=== PATIENT | female | born 1940 ===

== ENCOUNTER → 2016-09-20 | Outpatient (REF) | payer MEDICARE ==
[2016-09-20 17:34] LABS: INR 2.26
== END ==
LOC: M LABDRAWC 16:25
PROVIDERS: ATTEND Student in an Organized Health Care Education/Training Program
DX: D68.52 Prothrombin gene mutation (principal)

== ENCOUNTER → 2016-10-11 | Outpatient (REF) | payer MEDICARE ==
[2016-10-11 19:59] LABS: INR 3.07
== END ==
LOC: M LABDRAWC 17:16
PROVIDERS: ATTEND Student in an Organized Health Care Education/Training Program
DX: Z86.718 Personal history of other venous thrombosis and embolism (principal); E78.2 Mixed hyperlipidemia

== ENCOUNTER → 2016-11-17 | Outpatient (REF) | payer MEDICARE ==
[2016-11-17 18:15] LABS: INR 3.06
== END ==
LOC: M LAB REF 17:48
PROVIDERS: ATTEND Student in an Organized Health Care Education/Training Program
DX: D68.52 Prothrombin gene mutation (principal)

== ENCOUNTER → 2017-09-13 | Outpatient (REF) | payer MEDICARE ==
[2017-09-13 16:55] LABS: INR 1.85; PROTHROMBIN TIME 21.9 SECONDS (12.4-14.5)
== END ==
LOC: M LABDRAWC 16:24
DX: Z79.01 Long term (current) use of anticoagulants (principal)
CPT/HCPCS: 85610

== ENCOUNTER → 2017-10-03 | Outpatient (REF) | payer MEDICARE ==
[2017-10-03 17:08] LABS: INR 2.21; PROTHROMBIN TIME 24.9 SECONDS (12.1-14.4)
== END ==
LOC: M LABDRAWC 16:27
DX: Z51.81 Encounter for therapeutic drug level monitoring (principal); Z79.01 Long term (current) use of anticoagulants
CPT/HCPCS: 85610

== ENCOUNTER → 2017-11-14 | Outpatient (REF) | payer MEDICARE ==
[2017-11-14 17:40] LABS: INR 2.64; PROTHROMBIN TIME 28.7 SECONDS (12.1-14.4)
== END ==
LOC: M LABDRAWC 16:30
DX: Z79.01 Long term (current) use of anticoagulants (principal)
CPT/HCPCS: 85610

== ENCOUNTER → 2018-08-08 | Outpatient (REF) | payer MEDICARE ==
[2018-08-08 17:34] LABS: INR 2.34; PROTHROMBIN TIME 26.1 SECONDS (12.1-14.4)
== END ==
LOC: M LABDRAWC 16:45
PROVIDERS: ATTEND Student in an Organized Health Care Education/Training Program
DX: D68.2 Hereditary deficiency of other clotting factors (principal)

== ENCOUNTER → 2018-10-01 | Outpatient (REF) | payer MEDICARE ==
[2018-10-01 19:29] LABS: INR 2.37; PROTHROMBIN TIME 25.7 SECONDS (11.8-14.0)
== END ==
LOC: M LABDRAWC 17:28
PROVIDERS: ATTEND Student in an Organized Health Care Education/Training Program
DX: D68.2 Hereditary deficiency of other clotting factors (principal)

== ENCOUNTER → 2018-12-04 | Outpatient (REF) | payer MEDICARE ==
[2018-12-04 17:34] LABS: INR 1.34; PROTHROMBIN TIME 16.3 SECONDS (11.8-14.0)
== END ==
LOC: M LABDRAWC 16:01
PROVIDERS: ATTEND Student in an Organized Health Care Education/Training Program
DX: D68.2 Hereditary deficiency of other clotting factors (principal)

== ENCOUNTER → 2019-10-14 | Outpatient (REF) | payer MEDICARE ==
[2019-10-14 17:17] LABS: INR 2.36; PROTHROMBIN TIME 25.6 SECONDS (11.8-14.0)
== END ==
LOC: M LABDRAWC 15:41
PROVIDERS: ATTEND Student in an Organized Health Care Education/Training Program
DX: D68.51 Activated protein C resistance (principal); Z86.718 Personal history of other venous thrombosis and embolism

== ENCOUNTER → 2019-11-25 | Outpatient (REF) | payer MEDICARE ==
[2019-11-25 16:39] LABS: INR 2.88; PROTHROMBIN TIME 30.8 SECONDS (11.8-14.0)
== END ==
LOC: M LABDRAWC 16:02
PROVIDERS: ATTEND Student in an Organized Health Care Education/Training Program
DX: D68.51 Activated protein C resistance (principal); Z86.718 Personal history of other venous thrombosis and embolism

== ENCOUNTER → 2020-10-12 | Outpatient (REF) | payer MEDICARE ==
[2020-10-12 17:50] LABS: INR 2.71; PROTHROMBIN TIME 29.4 SECONDS (12.5-14.3)
== END ==
LOC: M LABDRAWC 15:53
DX: D68.51 Activated protein C resistance (principal); Z86.718 Personal history of other venous thrombosis and embolism

== ENCOUNTER → 2020-11-12 | Outpatient (REF) | payer MEDICARE ==
[2020-11-12 16:24] LABS: INR 3.24; PROTHROMBIN TIME 33.4 SECONDS (12.7-14.5)
== END ==
LOC: M LABDRAWC 15:40
PROVIDERS: ATTEND Student in an Organized Health Care Education/Training Program
DX: D68.51 Activated protein C resistance (principal)

== ENCOUNTER → 2020-12-03 | Outpatient (REF) | payer MEDICARE ==
[2020-12-03 16:15] LABS: INR 2.33; PROTHROMBIN TIME 25.9 SECONDS (12.7-14.5)
== END ==
LOC: M LABDRAWC 15:41
PROVIDERS: ATTEND Student in an Organized Health Care Education/Training Program
DX: D68.51 Activated protein C resistance (principal)

== ENCOUNTER → 2021-08-29 | Outpatient (REF) | payer MEDICARE ==
[2021-08-30 12:12] LABS: ALBUMIN 3.3 GM/DL (3.2-5.2); BILIRUBIN,DIRECT 0.3 MG/DL (0.0-0.2); BILIRUBIN,TOTAL 0.7 MG/DL (0.2-1.0); TOTAL PROTEIN 7.3 GM/DL (6.4-8.2)
[2021-08-30 12:22] LABS: INR 2.82
== END ==
LOC: M LABDRAWC 11:40
PROVIDERS: ATTEND Student in an Organized Health Care Education/Training Program
DX: R74.8 Abnormal levels of other serum enzymes (principal)

== ENCOUNTER → 2021-11-07 | Outpatient (REF) | payer MEDICARE ==
[2021-11-07 14:56] LABS: INR 2.53; PROTHROMBIN TIME 27.6 SECONDS (12.7-14.5)
== END ==
LOC: M LABDRAWC 14:18
PROVIDERS: ATTEND Nurse Practitioner Adult Health
DX: D68.51 Activated protein C resistance (principal)

== ENCOUNTER → 2021-12-08 | Outpatient (REF) | payer MEDICARE ==
[2021-12-08 18:17] LABS: INR 2.46
== END ==
LOC: M LABDRAWC 17:22
PROVIDERS: ATTEND Student in an Organized Health Care Education/Training Program
DX: D68.51 Activated protein C resistance (principal)

== ENCOUNTER → 2022-08-23 | Outpatient (REF) | payer MEDICARE ==
[2022-08-23 18:17] LABS: INR 2.15; PROTHROMBIN TIME 24.4 SECONDS (12.5-14.5)
== END ==
LOC: M LABDRAWC 16:59
PROVIDERS: ATTEND Nurse Practitioner Adult Health
DX: D68.51 Activated protein C resistance (principal)

== ENCOUNTER → 2022-09-07 | Outpatient (REF) | payer MEDICARE ==
[2022-09-07 17:45] LABS: INR 2.12; PROTHROMBIN TIME 24.1 SECONDS (12.5-14.5)
== END ==
LOC: M LABDRAWC 17:04
PROVIDERS: ATTEND Nurse Practitioner Adult Health
DX: D68.51 Activated protein C resistance (principal)

== ENCOUNTER → 2022-10-10 | Outpatient (REF) | payer MEDICARE ==
[2022-10-10 18:51] LABS: INR 2.26; PROTHROMBIN TIME 25.3 SECONDS (12.5-14.5)
== END ==
LOC: M LABDRAWC 17:38
PROVIDERS: ATTEND Nurse Practitioner Adult Health
DX: D68.51 Activated protein C resistance (principal)

== ENCOUNTER → 2022-11-09 | Outpatient (REF) | payer MEDICARE ==
[2022-11-09 17:51] LABS: INR 1.94; PROTHROMBIN TIME 21.6 SECONDS (12.5-14.5)
== END ==
LOC: M LABDRAWC 16:49
PROVIDERS: ATTEND Nurse Practitioner Adult Health
DX: D68.51 Activated protein C resistance (principal)

== ENCOUNTER → 2022-11-29 | Outpatient (REF) | payer MEDICARE ==
[2022-11-29 17:28] LABS: INR 2.04; PROTHROMBIN TIME 22.5 SECONDS (12.5-14.5)
== END ==
LOC: M LABDRAWC 16:53
PROVIDERS: ATTEND Nurse Practitioner Adult Health
DX: D68.51 Activated protein C resistance (principal)

== ENCOUNTER → 2023-08-08 | Outpatient (REF) | payer MEDICARE ==
[2023-08-08 17:18] LABS: INR 1.98; PROTHROMBIN TIME 21.8 SECONDS (12.5-14.5)
== END ==
LOC: M LABDRWCV 16:40
PROVIDERS: ATTEND Nurse Practitioner Adult Health
DX: D68.51 Activated protein C resistance (principal)

== ENCOUNTER → 2023-08-23 | Outpatient (REF) | payer MEDICARE ==
[2023-08-23 17:21] LABS: INR 2.24
== END ==
LOC: M LABDRAWC 16:33
PROVIDERS: ATTEND Nurse Practitioner Adult Health
DX: D68.51 Activated protein C resistance (principal)

== ENCOUNTER → 2023-09-21 | Outpatient (REF) | payer MEDICARE ==
[2023-09-21 17:18] LABS: INR 2.11; PROTHROMBIN TIME 22.9 SECONDS (12.5-14.5)
== END ==
LOC: M LABDRAWC 16:33
PROVIDERS: ATTEND Nurse Practitioner Adult Health
DX: D68.51 Activated protein C resistance (principal)

== ENCOUNTER → 2023-10-30 | Outpatient (REF) | payer MEDICARE ==
[2023-10-30 17:34] LABS: INR 1.86; PROTHROMBIN TIME 20.8 SECONDS (12.5-14.5)
== END ==
LOC: M LABDRAWC 15:52
PROVIDERS: ATTEND Nurse Practitioner Adult Health
DX: D68.51 Activated protein C resistance (principal)

== ENCOUNTER → 2023-12-04 | Outpatient (REF) | payer MEDICARE ==
[2023-12-04 17:15] LABS: INR 1.44; PROTHROMBIN TIME 17.1 SECONDS (12.5-14.5)
== END ==
LOC: M LABDRAWC 16:31
PROVIDERS: ATTEND Nurse Practitioner Adult Health
DX: D68.51 Activated protein C resistance (principal)

== ENCOUNTER → 2023-12-11 | Outpatient (REF) | payer MEDICARE ==
[2023-12-11 17:49] LABS: INR 1.48; PROTHROMBIN TIME 17.4 SECONDS (12.5-14.5)
== END ==
LOC: M LABDRAWC 16:58
PROVIDERS: ATTEND Nurse Practitioner Adult Health
DX: D68.61 Antiphospholipid syndrome (principal)

== ENCOUNTER → 2023-12-25 | Outpatient (REF) | payer MEDICARE ==
[2023-12-25 17:14] LABS: INR 1.36; PROTHROMBIN TIME 16.3 SECONDS (12.5-14.5)
== END ==
LOC: M LABDRAWC 16:29
PROVIDERS: ATTEND Nurse Practitioner Adult Health
DX: D68.51 Activated protein C resistance (principal)

== ENCOUNTER → 2024-08-07 | Outpatient (REF) | payer MEDICARE ==
[2024-08-07 12:11] LABS: INR 2.75; PROTHROMBIN TIME 29.1 SECONDS (12.5-14.5)
== END ==
LOC: M LABDRAWC 11:51
PROVIDERS: ATTEND Nurse Practitioner Adult Health
DX: D68.51 Activated protein C resistance (principal)

== ENCOUNTER → 2024-10-27 | Outpatient (REF) | payer MEDICARE ==
[2024-10-27 17:23] LABS: INR 2.15
== END ==
LOC: M LABDRAWC 17:01
PROVIDERS: ATTEND Nurse Practitioner Adult Health
DX: D68.51 Activated protein C resistance (principal)

== ENCOUNTER → 2024-12-17 | Outpatient (REF) | payer MEDICARE ==
[2024-12-17 12:08] LABS: INR 1.83
== END ==
LOC: M LABDRAWC 11:50
PROVIDERS: ATTEND Nurse Practitioner Adult Health
DX: D68.51 Activated protein C resistance (principal)

== ENCOUNTER → 2024-12-24 | Outpatient (REF) | payer MEDICARE ==
[2024-12-24 17:25] LABS: INR 1.96
== END ==
LOC: M LABDRAWC 17:00
PROVIDERS: ATTEND Nurse Practitioner Adult Health
DX: D68.51 Activated protein C resistance (principal)